=== PATIENT | female | born 1970 | race Caucasian/White ===

== ENCOUNTER → 2016-12-20 | Outpatient (CLI) | payer BC ==
--- NOTE | 2016-12-21 02:49 | REP ---
Clinical: Trauma. Contusion. Technique: AP, lateral, bilateral oblique views of the left ankle. Findings: There is a nondisplaced fracture involving the distal tip of the fibula/lateral malleolus with overlying soft tissue swelling. Ankle mortise intact. No other fracture dislocation identified. Impression: Nondisplaced fracture of the distal fibula / lateral malleolus with soft tissue swelling. Signed by Piter Adams MD 12/21/2016 02:40 A
--- NOTE | 2016-12-21 02:51 | REP ---
Clinical: Contusion. Technique: AP, lateral, bilateral oblique views of the left foot. Findings: Soft tissue swelling over the lateral ankle suggested. The is unremarkable and without fracture or dislocation. No subcutaneous emphysema or radiodense foreign body. Impression: Lateral swelling over the ankle. No foot fracture/injury identified. Signed by Piter Adams MD 12/21/2016 02:42 A
== END ==
LOC: M WUC 14:49
PROVIDERS: ATTEND Physician Assistant
DX: S90.02XA Contusion of left ankle, initial encounter (principal); S90.32XA Contusion of left foot, initial encounter; X58.XXXA Exposure to other specified factors, initial encounter; Y92.89 Other specified places as the place of occurrence of the external cause

== ENCOUNTER → 2017-01-11 | Outpatient (CLI) | payer BC ==
--- NOTE | 2017-01-11 10:26 | REP ---
NUCLEAR GASTRIC EMPTYING SCAN: Following the oral administration of 1.04 mCi technetium-99m sulfur colloid in two scrambled eggs and 6 ounces of water, multiple images of the upper abdomen are performed in the anterior and posterior projections for 90 minutes. Gastric activity is measured. At the end of the 90 minutes, 33% of the ingested activity has emptied from the stomach. This yields a t1/2 of 134 minutes. This is above upper limit of normal value of 90 minutes. IMPRESSION: Mildly delayed gastric emptying. Signed by Praveen Arguello MD 01/11/2017 04:50 P
== END ==
LOC: M RAD 07:56
PROVIDERS: ATTEND Internal Medicine Gastroenterology
DX: R11.0 Nausea (principal); R14.0 Abdominal distension (gaseous)

== ENCOUNTER → 2017-10-05 | Outpatient (REF) | payer BC | LOC: M LAB REF 13:44 | DX: R30.0 Dysuria (principal) | CPT/HCPCS: 81001 ==

== ENCOUNTER → 2020-12-06 | Outpatient (CLI) | payer BC ==
--- NOTE | 2020-12-06 08:47 | REP ---
INDICATION: ABD PAIN COMPARISON: None. TECHNIQUE: Real time chan scale ultrasound examination using curved array transducer. FINDINGS: Liver and pancreas are normal in contour, size, and echogenicity without focal hepatic or pancreatic lesions identified. The gallbladder is normal and without gallstones, wall thickening, or pericholecystic fluid. No biliary ductal dilatation is appreciated and the common bile duct measures 4.2 mm diameter. Right kidney is normal in reniform shape without hydronephrosis and measures 10.8 x 4.8 x 3.8 cm. Visualized abdominal appears normal. No ascites in the visualized right upper quadrant. IMPRESSION: Normal limited right upper quadrant ultrasound <Electronically signed by Piter Adams > 12/06/20 [id number]
== END ==
LOC: M RAD 07:10
PROVIDERS: ATTEND Internal Medicine Gastroenterology
DX: K22.70 Barrett's esophagus without dysplasia (principal); K44.9 Diaphragmatic hernia without obstruction or gangrene; R14.0 Abdominal distension (gaseous); R13.10 Dysphagia, unspecified; E56.9 Vitamin deficiency, unspecified

== ENCOUNTER 2021-04-28 18:35 | Emergency (ER) | payer BC, OTHER ==
[~2021-04-28] VITALS: Ht 167.6 cm; Wt 75.6 kg
[2021-04-28] MEDS ORDERED: DULO1CAP6 (18:53)
[2021-04-28] MEDS ORDERED: SPIR-10 (18:53)
[2021-04-28] MEDS ORDERED: BUPR150T12 (18:53)
[2021-04-28] MEDS ORDERED: METO5TAB2 (18:53)
[2021-04-28] MEDS ORDERED: LIDOCAINE 1% MDV 20ML VIAL SC ONE (19:35)
[2021-04-28] MEDS ORDERED: NEOSPORIN OINT 0.9 GM PKT TOP ONE (19:35)
[2021-04-28] MEDS ORDERED: BOOSTRIX/ADACEL VACCINE (DIPHTH/PERTUSS/ACELL/TETANUS) 0.5ML SYR IM ONE (19:35)
[2021-04-28 20:32] VITALS: BP 127/80
== END 2021-04-28 20:35 | disposition home or self-care (01) ==
LOC: M ED 18:35
DX: S51.852A Open bite of left forearm, initial encounter (principal); W54.0XXA Bitten by dog, initial encounter; Y92.099 Unspecified place in other non-institutional residence as the place of occurrence of the external cause; Y93.89 Activity, other specified; Y99.9 Unspecified external cause status; Z88.5 Allergy status to narcotic agent; Z88.6 Allergy status to analgesic agent

== ENCOUNTER → 2022-07-19 | Outpatient (REF) | payer BC ==
[~2022-07-19] MED LIST: BUPR150T12; DULO1CAP6; METO5TAB2; SPIR-10
[2022-07-19 22:04] LABS: APPEARANCE, URINE MANUAL CLEAR (CLEAR); BILIRUBIN, URINE MANUAL NEGATIVE (NEGATIVE); BLOOD URINE MANUAL NEGATIVE (NEGATIVE); COLOR, URINE MANUAL YELLOW (YELLOW); GLUCOSE, URINE (UA) MANUAL NEGATIVE (NEGATIVE); KETONE, URINE MANUAL NEGATIVE (NEGATIVE); LEUKOCYTE ESTERASE, URINE MAN POSITIVE (NEGATIVE); NITRITE, URINE MANUAL NEGATIVE (NEGATIVE); PROTEIN, URINE MANUAL NEGATIVE (NEGATIVE); SPECIFIC GRAVITY,URINE MANUAL 1.025 (1.002-1.035); UROBILINOGEN, URINE MANUAL NORMAL (NORMAL)
[2022-07-19 22:28] LABS: BACTERIA, URINE SMALL AMOUNT; HYALINE CAST, URINE NONE SEEN /lpf (0-1); RBC, URINE NONE SEEN /hpf (0-3); SQUAMOUS EPITHELIAL CELL URINE SMALL AMOUNT /hpf (SMALL AMT); WBC, URINE 30-40 /hpf (0-3)
== END ==
LOC: M LAB REF 21:10
PROVIDERS: ATTEND Physician Assistant
DX: N39.0 Urinary tract infection, site not specified (principal)